=== PATIENT | male | born 1970 | race Caucasian/White ===

== ENCOUNTER 2021-08-01 16:34 | Emergency (ER) | payer OTHER ==
[2021-08-01] MEDS ORDERED: BAMLANIVIMAB (EUA) 700 MG, ETESEVIMAB (EUA) 1,400 MG in SODIUM CHLORIDE 0.9% 50 ML IVPB ONE (20:15)
[2021-08-01] MEDS ORDERED: SODIUM CHLORIDE 0.9% 50 ML IVPB ONE (20:15)
--- NOTE | 2021-08-01 20:19 | ED ---
General Adult HPI - General Chief complaint: Upper Respiratory Infection Stated complaint: Infusion Time Seen by Provider: 08/01/21 18:07 Source: patient Mode of arrival: ambulatory Limitations: no limitations - History of Present Illness Initial comments: 51-year-old male past history of MS presents emergency department requesting antibody infusion. He states that he has had 7 days worth of head cold symptoms including cough, congestion, nasal stuffiness. He followed up with his primary care physician today who tested him for Covid he found out that he was positive. Denies any known sick contacts. He is not vaccinated. Denies nausea, vomiting or diarrhea. Primary care physician did place him on antibiotics, steroids and recommended he come to the emergency department for antibody infusion. He does arrive with a prescription from his primary care doctor. No other alleviating, precipitating or modifying factors - Related Data Allergies Allergy/AdvReac Type Severity Reaction Status Date / Time No Known Allergies Allergy Verified 08/01/21 17:05 Review of Systems ROS Statement: Those systems with pertinent positive or pertinent negative responses have been documented in the HPI. ROS Other: All systems not noted in ROS Statement are negative. Past Medical History Additional Past Medical History / Comment(s): MS, History of Any Multi-Drug Resistant Organisms: None Reported Past Surgical History: Back Surgery, Hernia Repair Past Psychological History: No Psychological Hx Reported Smoking Status: Never smoker Past Alcohol Use History: None Reported Past Drug Use History: None Reported General Exam Limitations: no limitations General appearance: alert, in no apparent distress Head exam: Present: atraumatic, normocephalic, normal inspection Eye exam: Present: normal appearance, PERRL, EOMI. Absent: scleral icterus, conjunctival injection, periorbital swelling ENT exam: Present: normal exam, mucous membranes moist Neck exam: Present: normal inspection. Absent: tenderness, meningismus, lymphadenopathy Respiratory exam: Present: normal lung sounds bilaterally. Absent: respiratory distress, wheezes, rales, rhonchi, stridor Cardiovascular Exam: Present: regular rate, normal rhythm, normal heart sounds. Absent: systolic murmur, diastolic murmur, rubs, gallop, clicks GI/Abdominal exam: Present: soft, normal bowel sounds. Absent: distended, tenderness, guarding, rebound, rigid Extremities exam: Present: normal inspection, full ROM, normal capillary refill. Absent: tenderness, pedal edema, joint swelling, calf tenderness Back exam: Present: normal inspection Neurological exam: Present: alert, oriented X3, CN II-XII intact Psychiatric exam: Present: normal affect, normal mood Skin exam: Present: warm, dry, intact, normal color. Absent: rash Course Vital Signs 08/01/21 08/01/21 17:02 22:53 Temperature 98.8 F 98.6 F Pulse Rate 85 78 Respiratory 18 20 Rate Blood Pressure 123/85 103/70 O2 Sat by Pulse 97 96 Oximetry Medical Decision Making - Medical Decision Making Upon arrival patient's placed in room 23. He is accompanied by his . Patient does have stable vital signs. Will receive antibiotic infusion. He is instructed to take the medications as directed by his primary care doctor. Follow up with her. Return for any worsening symptoms for patient was discharged with stable condition Disposition Clinical Impression: COVID-19 Disposition: HOME SELF-CARE Condition: Stable Instructions (If sedation given, give patient instructions): Coronavirus Disease 2019 (COVID-19) Additional Instructions: Please follow-up with your primary care doctor within 2-4 days. Return to the emergency room for any new or worsening symptoms Is patient prescribed a controlled substance at d/c from ED?: No Referrals: Cristopher Adams MD [Primary Care Provider] - 1-2 days Time of Disposition: 20:19
[2021-08-01 22:53] VITALS: BP 103/70; PULSE 78; RESP 20; TEMP 98.6
== END 2021-08-01 22:54 | disposition home or self-care (01) ==
LOC: EC 16:34
DX: U07.1 COVID-19 (principal)
CPT/HCPCS: 99283; J3490